=== PATIENT | female | born 1950 | race Caucasian/White ===

== ENCOUNTER 2018-03-11 09:52 | Inpatient (IN) ==
[2018-03-11] MEDS ORDERED: ASPIRIN 325 MG TABLET PO STA (10:21)
[2018-03-11] MEDS ORDERED: MORPHINE 4 MG/1 ML VIAL IV STA (10:21)
[2018-03-11] MEDS ORDERED: ONDANSETRON 4 MG/2 ML VIAL IV STA (10:21)
[2018-03-11] MEDS ORDERED: NITROGLYCERIN 2% OINT 1 INCH/GM PACK TOP STA (10:21)
[2018-03-11 10:53] LABS: Basophils % 0.6 % (0.0-0.8); Eosinophils # 0.3 10*3/uL (0.0-0.87); Eosinophils % 4.3 % (0.00-10.9); Hematocrit 41.2 VOL% (35.7-47.0); Hemoglobin 14.6 GM/DL (12.0-16.0); Immature Granulocytes % 0.1 %; Immature Granulocytes Absolute 0.01 #; Lymphocytes # 2.2 10*3/uL (1.4-4.0); Mean Corpuscular HGB Conc 35.4 GM/DL (32-36); Mean Corpuscular Hemoglobin 34 PG (27-34); Mean Corpuscular Volume 96.3 FL (87-102); Mean Platelet Volume 8.9 FL (9.6-12.0); Monocytes # 0.6 10*3/uL (0.11-0.8); Monocytes % 8.3 % (1.7-12.7); Neutrophils # 3.7 10*3/uL (1.4-7.4); Neutrophils % 54.7 % (38.7-73.9); Platelet Count 246 T/CUMM (130-400); Red Blood Count 4.28 MC/CUMM (3.8-5.5); Red Cell Distribution Width 13.1 % (9.3-17.3); White Blood Count 6.8 T/CUMM (4-12)
[2018-03-11 11:01] LABS: INR 1.4; PT Patient Result 14.5 SECS
[2018-03-11 11:44] LABS: Albumin 3.5 G/DL (3.4-5.0); Bilirubin,Total 0.4 MG/DL (0.2-1.0); Calcium 9.3 MG/DL (8.5-10.1); Osmolality,Calculated 255.9 MOS/KG (273-304); Potassium 4.9 MMOL/L (3.5-5.1); Total Protein 7.1 G/DL (6.4-8.3)
[2018-03-11 12:02] LABS: Apearance,Urine CLEAR (Clear); Bilirubin,Urine Negative (Negative); Blood, Urine Negative (Negative); Glucose,Urine (UA) Negative (Negative); Ketones,Urine Negative (Negative); Nitrite,Urine Negative (Negative); Protein,Urine Negative; RBC,Urine <1 /HPF (0-4); Urine Color Straw (Yellow); Urine Specific Gravity 1.003 (1.001-1.035); Urine Urobilinogen < 2.0 EU/DL (0.2-1.0)
[2018-03-11] MEDS ORDERED: ONDANSETRON 4 MG/2 ML VIAL IV PRN (15:01)
[2018-03-11] MEDS ORDERED: ACETAMINOPHEN 325 MG TABLET PO PRN (15:01)
[2018-03-11] MEDS ORDERED: MORPHINE 4 MG/1 ML VIAL IV PRN (15:01)
[2018-03-11] MEDS ORDERED: PNEUMOCOCCAL VACCINE (13 VALENT) 0.5 ML SYRINGE IM ONE (15:12)
[2018-03-11] MEDS ORDERED: NICOTINE 21 MG/24 HR PATCH TRANSDERM SCH (16:30)
[2018-03-11] MEDS: ENOXAPARIN 60 MG/0.6 ML SYRINGE SUBCUT SCH (16:32)
[2018-03-11] MEDS: SODIUM CHLORIDE 0.9% 1,000 ML IV SCH (16:32)
[2018-03-11] MEDS ORDERED: NITROGLYCERIN 2% OINT 1 INCH/GM PACK TOP SCH (18:00)
[2018-03-11] MEDS ORDERED: ZALEPLON 5 MG CAPSULE PO PRN (20:30)
[2018-03-11] MEDS ORDERED: GABAPENTIN 300 MG CAPSULE PO SCH (21:00)
[2018-03-11] MEDS: DOCUSATE SODIUM 100 MG CAPSULE PO SCH (21:30)
[2018-03-12 05:30] LABS: Basophils # 0.1 10*3/uL (0.0-0.2); Basophils % 1.2 % (0.0-0.8); Eosinophils # 0.5 10*3/uL (0.0-0.87); Eosinophils % 9.8 % (0.00-10.9); Hematocrit 36.7 VOL% (35.7-47.0); Hemoglobin 12.7 GM/DL (12.0-16.0); Immature Granulocytes % 0.2 %; Immature Granulocytes Absolute 0.01 #; Lymphocytes # 2.1 10*3/uL (1.4-4.0); Lymphocytes % 43.3 % (21.3-54.2); Mean Corpuscular HGB Conc 34.6 GM/DL (32-36); Mean Corpuscular Hemoglobin 33 PG (27-34); Mean Corpuscular Volume 96.1 FL (87-102); Mean Platelet Volume 9.2 FL (9.6-12.0); Monocytes # 0.4 10*3/uL (0.11-0.8); Monocytes % 7.5 % (1.7-12.7); Neutrophils # 1.9 10*3/uL (1.4-7.4); Platelet Count 222 T/CUMM (130-400); Red Blood Count 3.82 MC/CUMM (3.8-5.5); Red Cell Distribution Width 13.2 % (9.3-17.3); White Blood Count 4.9 T/CUMM (4-12)
[2018-03-12] MEDS: ENOXAPARIN 60 MG/0.6 ML SYRINGE SUBCUT SCH (05:34)
[2018-03-12] MEDS: SODIUM CHLORIDE 0.9% 1,000 ML IV SCH (05:34)
[2018-03-12 06:00] LABS: Atypical Lymphocytes Few; Eosinophils 9 % (0-10); Giant Platelets Few; Hypochromasia 1+; Lymphocytes 40 % (20-55); Platelet Estimate Adequate; Segmented Neutrophils 42 % (50-85); Total Cells Counted 100
[2018-03-12 06:10] LABS: Albumin 2.9 G/DL (3.4-5.0); Bilirubin,Total 0.4 MG/DL (0.2-1.0); Calcium 8.4 MG/DL (8.5-10.1); Osmolality,Calculated 272.7 MOS/KG (273-304); Potassium 4.1 MMOL/L (3.5-5.1); Risk Ratio 2.46; Total Protein 5.4 G/DL (6.4-8.3); VLDL CHOLESTEROL 24.2 MG/DL
[2018-03-12] MEDS ORDERED: ASPIRIN EC 81 MG TABLET PO SCH (09:00)
[2018-03-12] MEDS ORDERED: PANTOPRAZOLE 40 MG TABLET PO SCH ×2 (09:00)
[2018-03-12] MEDS ORDERED: ESTRADIOL 1 MG TABLET PO SCH (09:00)
[2018-03-12] MEDS ORDERED: HEPARIN/NACL 0.9% 2 UNITS/ML 1,000 ML IV ONE (10:55)
[2018-03-12] MEDS: DOCUSATE SODIUM 100 MG CAPSULE PO SCH (10:55)
[2018-03-12] MEDS ORDERED: VERAPAMIL 5 MG/2 ML VIAL ONE (11:27)
[2018-03-12] MEDS ORDERED: MIDAZOLAM 2 MG/2 ML VIAL ONE (11:27)
[2018-03-12] MEDS ORDERED: NITROGLYCERIN DRIP 50 MG/250 ML BOTTLE IV ONE (11:27)
[2018-03-12] MEDS ORDERED: HYDROmorphone 2 MG/1 ML VIAL ONE (11:29)
[2018-03-12] MEDS ORDERED: SODIUM CHLORIDE 0.9% 1,000 ML IV SCH (12:00)
[2018-03-12 14:23] VITALS: BP 129/67
== END 2018-03-12 15:15 | disposition home or self-care (01) | DRG 287 ==
LOC: N.ED 09:52 → N.EDINP 12:21 → N.TELEN 14:59
PROVIDERS: ADMIT Family Medicine; ATTEND Family Medicine
PROC: CLCCHCL (ICD-10-PCS; 2018-03-12 12:15)

== ENCOUNTER 2019-11-25 03:35 | Inpatient (IN) ==
[2019-11-25] MEDS ORDERED: SODIUM CHLORIDE 0.9% 500 ML IV STA (03:57)
[2019-11-25] MEDS ORDERED: ONDANSETRON 4 MG/2 ML VIAL ONE (04:40)
[2019-11-25] MEDS ORDERED: KETOROLAC 30 MG/1 ML VIAL ONE (04:41)
[2019-11-25] MEDS ORDERED: HYDROmorphone 2 MG/1 ML VIAL ONE (04:41)
[2019-11-25] MEDS ORDERED: HYDROmorphone 2 MG/1 ML VIAL IV STA (04:42)
[2019-11-25] MEDS ORDERED: KETOROLAC 30 MG/1 ML VIAL IV STA (04:42)
[2019-11-25] MEDS ORDERED: ONDANSETRON 4 MG/2 ML VIAL IV STA (04:42)
[2019-11-25 04:53] LABS: Basophils % 0.4 % (0.0-0.8); Eosinophils # 0.4 10*3/uL (0.0-0.87); Eosinophils % 3.5 % (0.00-10.9); Hematocrit 37.3 VOL% (35.7-47.0); Immature Granulocytes % 0.5 %; Immature Granulocytes Absolute 0.05 #; Lymphocytes # 1.4 10*3/uL (1.4-4.0); Lymphocytes % 13.1 % (21.3-54.2); Mean Corpuscular HGB Conc 34.9 GM/DL (32-36); Mean Corpuscular Volume 95.2 FL (87-102); Mean Platelet Volume 8.9 FL (9.6-12.0); Monocytes % 5.8 % (1.7-12.7); Neutrophils % 76.7 % (38.7-73.9); Platelet Count 241 T/CUMM (130-400); Red Blood Count 3.92 MC/CUMM (3.8-5.5); Red Cell Distribution Width 12.3 % (9.3-17.3)
[2019-11-25 05:17] LABS: Alanine Aminotransferase 16 U/L (13-56); Albumin 3.5 G/DL (3.4-5.0); Alkaline Phosphatase 48 U/L (45-117); Aspartate Amino Transferase 19 U/L (0-37); Blood Urea Nitrogen 11 MG/DL (7-18); Calcium 8.7 MG/DL (8.5-10.1); Estimated Glom Filtration Rate 94 ML/MIN; Glucose 115 MG/DL (74-106); Osmolality,Calculated 252.4 MOS/KG (273-304); Total Protein 6.7 G/DL (6.4-8.3)
[2019-11-25 06:39] LABS: Apearance,Urine CLEAR (Clear); Bilirubin,Urine Negative (Negative); Blood, Urine Negative (Negative); Glucose,Urine (UA) Negative (Negative); Hyaline Casts,Urine 1 /LPF (0-3); Ketones,Urine Negative (Negative); Nitrite,Urine Negative (Negative); Protein,Urine Negative; RBC,Urine 2 /HPF (0-4); Squamous Epithelial Cell,Urine Occasional /HPF (0-10); Urine Color Straw (Yellow); Urine Specific Gravity 1.013 (1.001-1.035); Urine Urobilinogen < 2.0 EU/DL (0.2-1.0); WBC,Urine 1 /HPF (0-6)
[2019-11-25 06:44] LABS: Barbiturates Screen,Urine Negative (Negative); Benzodiazepines Screen,Urine Negative (Negative); Cannabinoid Screen,Urine Negative (Negative); Opiate Screen,Urine Positive (Negative); Phencyclidine Screen,Urine Negative (Negative)
[2019-11-25] MEDS ORDERED: ONDANSETRON 4 MG/2 ML VIAL IV PRN (08:05)
[2019-11-25] MEDS ORDERED: ACETAMINOPHEN 325 MG TABLET PO PRN (08:05)
[2019-11-25] MEDS ORDERED: ENOXAPARIN 40 MG/0.4 ML SYRINGE SUBCUT SCH (08:30)
[2019-11-25 08:37] LABS: Risk Ratio 2.36; Thyroid Stimulating Hormone 6.16 uIU/ml (0.358-3.74); VLDL CHOLESTEROL 25.6 MG/DL
[2019-11-25] MEDS ORDERED: ceFAZolin 1,000 MG in SYRINGE 1 EACH IV ONE (10:13)
[2019-11-25] MEDS: SODIUM CHLORIDE 0.9% 1,000 ML IV SCH ×2 (11:21→20:49)
[2019-11-25] MEDS: ESTRADIOL 1 MG TABLET PO SCH (12:21)
[2019-11-25] MEDS: LIDOCAINE 5% PATCH TRANSDERM SCH (12:21)
[2019-11-25] MEDS: PANTOPRAZOLE 40 MG TABLET PO SCH (12:21)
[2019-11-26] MEDS: HYDROmorphone 2 MG/1 ML VIAL IV PRN ×2 (00:54→05:15)
[2019-11-26 05:07] LABS: Basophils # 0.1 10*3/uL (0.0-0.2); Basophils % 0.7 % (0.0-0.8); Eosinophils # 0.4 10*3/uL (0.0-0.87); Eosinophils % 6.2 % (0.00-10.9); Hematocrit 38.5 VOL% (35.7-47.0); Hemoglobin 12.9 GM/DL (12.0-16.0); Immature Granulocytes % 0.1 %; Immature Granulocytes Absolute 0.01 #; Lymphocytes % 29.3 % (21.3-54.2); Mean Corpuscular HGB Conc 33.5 GM/DL (32-36); Mean Corpuscular Volume 97.5 FL (87-102); Mean Platelet Volume 9.4 FL (9.6-12.0); Monocytes % 6.2 % (1.7-12.7); Neutrophils % 57.5 % (38.7-73.9); Platelet Count 227 T/CUMM (130-400); Red Blood Count 3.95 MC/CUMM (3.8-5.5); Red Cell Distribution Width 12.7 % (9.3-17.3); White Blood Count 6.8 T/CUMM (4-12)
[2019-11-26 05:33] LABS: Calcium 8.4 MG/DL (8.5-10.1); Osmolality,Calculated 265.2 MOS/KG (273-304)
[2019-11-26] MEDS ORDERED: ceFAZolin 1,000 MG VIAL ONE (06:06)
[2019-11-26] MEDS ORDERED: LIDOCAINE 1%/EPI INJ 20 ML VIAL ONE (06:06)
[2019-11-26] MEDS ORDERED: TISSUE ADHESIVE 1 EACH APPLICATOR TOP ONE (06:06)
[2019-11-26] MEDS ORDERED: IBUPROFEN 400 MG TABLET PO PRN (07:37)
[2019-11-26] MEDS: PANTOPRAZOLE 40 MG TABLET PO SCH (08:46)
[2019-11-26] MEDS: ESTRADIOL 1 MG TABLET PO SCH (08:47)
[2019-11-26] MEDS: LIDOCAINE 5% PATCH TRANSDERM SCH (08:48)
[2019-11-26] MEDS: NICOTINE 21 MG/24 HR PATCH TRANSDERM SCH (14:50)
[2019-11-26] MEDS: SODIUM CHLORIDE 0.9% 1,000 ML IV SCH (15:03)
[2019-11-27] MEDS: HYDROmorphone 2 MG/1 ML VIAL IV PRN (02:59)
[2019-11-27] MEDS: ALBUTEROL/IPRATROPIUM 3 ML NEB RESP TX SCH ×4 (03:03→19:50)
[2019-11-27] MEDS: cefTRIAXone 1,000 MG in SYRINGE 1 EACH IV SCH (03:06)
[2019-11-27] MEDS: AZITHROMYCIN INJ 500 MG in SODIUM CHLORIDE 0.9% 250 ML IV SCH (03:15)
[2019-11-27 05:53] LABS: Basophils % 0.4 % (0.0-0.8); Eosinophils # 0.1 10*3/uL (0.0-0.87); Eosinophils % 1.1 % (0.00-10.9); Hemoglobin 12.6 GM/DL (12.0-16.0); Immature Granulocytes % 0.2 %; Immature Granulocytes Absolute 0.02 #; Lymphocytes # 0.8 10*3/uL (1.4-4.0); Lymphocytes % 9.3 % (21.3-54.2); Mean Corpuscular HGB Conc 34.1 GM/DL (32-36); Mean Corpuscular Volume 97.1 FL (87-102); Mean Platelet Volume 9.5 FL (9.6-12.0); Platelet Count 215 T/CUMM (130-400); Red Blood Count 3.81 MC/CUMM (3.8-5.5); Red Cell Distribution Width 12.9 % (9.3-17.3); White Blood Count 8.4 T/CUMM (4-12)
[2019-11-27 06:15] LABS: Calcium 8.4 MG/DL (8.5-10.1); Osmolality,Calculated 262.4 MOS/KG (273-304)
[2019-11-27] MEDS: PANTOPRAZOLE 40 MG TABLET PO SCH (08:40)
[2019-11-27] MEDS: NICOTINE 21 MG/24 HR PATCH TRANSDERM SCH (08:40)
[2019-11-27] MEDS: LIDOCAINE 5% PATCH TRANSDERM SCH (08:40)
[2019-11-27] MEDS: ESTRADIOL 1 MG TABLET PO SCH (08:40)
[2019-11-27] MEDS ORDERED: CETIRIZINE 10 MG TABLET PO PRN (10:10)
[2019-11-27] MEDS ORDERED: LORazepam 2 MG/1 ML VIAL IM PRN (11:08)
[2019-11-27] MEDS: LORazepam 2 MG/1 ML VIAL IV PRN (11:26)
[2019-11-27] MEDS: MONTELUKAST 10 MG TABLET PO SCH (11:33)
[2019-11-27] MEDS ORDERED: LORazepam 2 MG/1 ML VIAL IV PRN (13:10)
[2019-11-27] MEDS: DOCUSATE SODIUM 100 MG CAPSULE PO PRN (15:09)
[2019-11-28] MEDS: HYDROmorphone 2 MG/1 ML VIAL IV PRN ×3 (00:19→13:55)
[2019-11-28] MEDS: ALBUTEROL/IPRATROPIUM 3 ML NEB RESP TX SCH ×4 (01:10→19:32)
[2019-11-28] MEDS: LORazepam 2 MG/1 ML VIAL IV PRN (01:27)
[2019-11-28] MEDS: cefTRIAXone 1,000 MG in SYRINGE 1 EACH IV SCH (03:33)
[2019-11-28] MEDS: AZITHROMYCIN INJ 500 MG in SODIUM CHLORIDE 0.9% 250 ML IV SCH (03:38)
[2019-11-28] MEDS: LIDOCAINE 5% PATCH TRANSDERM SCH (09:24)
[2019-11-28] MEDS: POLYETHYLENE GLYCOL POWDER 17 GM PACK PO SCH (09:25)
[2019-11-28] MEDS: NICOTINE 21 MG/24 HR PATCH TRANSDERM SCH (09:26)
[2019-11-28] MEDS: MONTELUKAST 10 MG TABLET PO SCH (09:28)
[2019-11-28] MEDS: ESTRADIOL 1 MG TABLET PO SCH (09:28)
[2019-11-28] MEDS: DOCUSATE SODIUM 100 MG CAPSULE PO PRN (09:29)
[2019-11-28] MEDS: PANTOPRAZOLE 40 MG TABLET PO SCH (09:29)
[2019-11-29] MEDS: ALBUTEROL/IPRATROPIUM 3 ML NEB RESP TX SCH ×2 (01:58→07:24)
[2019-11-29] MEDS: cefTRIAXone 1,000 MG in SYRINGE 1 EACH IV SCH (03:13)
[2019-11-29] MEDS: AZITHROMYCIN INJ 500 MG in SODIUM CHLORIDE 0.9% 250 ML IV SCH (03:17)
[2019-11-29 05:09] LABS: Basophils # 0.1 10*3/uL (0.0-0.2); Basophils % 0.9 % (0.0-0.8); Eosinophils # 1.4 10*3/uL (0.0-0.87); Hematocrit 35.6 VOL% (35.7-47.0); Hemoglobin 11.9 GM/DL (12.0-16.0); Immature Granulocytes % 0.2 %; Immature Granulocytes Absolute 0.01 #; Lymphocytes # 1.7 10*3/uL (1.4-4.0); Lymphocytes % 29.5 % (21.3-54.2); Mean Corpuscular HGB Conc 33.4 GM/DL (32-36); Mean Corpuscular Volume 98.1 FL (87-102); Mean Platelet Volume 9.3 FL (9.6-12.0); Monocytes % 7.7 % (1.7-12.7); Neutrophils % 37.7 % (38.7-73.9); Platelet Count 235 T/CUMM (130-400); Red Blood Count 3.63 MC/CUMM (3.8-5.5); Red Cell Distribution Width 12.9 % (9.3-17.3); White Blood Count 5.9 T/CUMM (4-12)
[2019-11-29 05:28] LABS: Calcium 8.4 MG/DL (8.5-10.1); Osmolality,Calculated 267.1 MOS/KG (273-304)
[2019-11-29 05:37] LABS: Eosinophils 28 % (0-10); Hypochromasia 1+; Lymphocytes 30 % (20-55); Platelet Estimate Adequate; Segmented Neutrophils 36 % (50-85); Total Cells Counted 100
[2019-11-29 05:38] LABS: Atypical Lymphocytes Few
[2019-11-29] MEDS: LIDOCAINE 5% PATCH TRANSDERM SCH (08:07)
[2019-11-29] MEDS: POLYETHYLENE GLYCOL POWDER 17 GM PACK PO SCH (08:09)
[2019-11-29] MEDS: ESTRADIOL 1 MG TABLET PO SCH (08:10)
[2019-11-29] MEDS: NICOTINE 21 MG/24 HR PATCH TRANSDERM SCH (08:10)
[2019-11-29] MEDS: PANTOPRAZOLE 40 MG TABLET PO SCH (08:10)
[2019-11-29] MEDS: MONTELUKAST 10 MG TABLET PO SCH (08:10)
[2019-11-29] MEDS: DOCUSATE SODIUM 100 MG CAPSULE PO PRN (08:11)
[2019-11-29] MEDS ORDERED: METOPROLOL SUCCINATE XL 25 MG TABLET PO SCH (09:30)
[2019-11-29 11:48] VITALS: BP 103/54
== END 2019-11-29 12:52 | disposition home or self-care (01) | DRG 260 ==
LOC: N.ED 03:35 → N.EDINP 03:35 → SUATTDRO 08:05 → N.3E 09:50
PROVIDERS: ADMIT Family Medicine; ATTEND Internal Medicine